=== PATIENT | female | born 1960 | race American Indian/Alaskan Native ===

== ENCOUNTER 2021-05-25 13:36 | Emergency (ER) | payer OTHER ==
[2021-05-25 14:02] VITALS: BP 167/95; PULSE 110
--- NOTE | 2021-05-25 14:30 | EDM.PDOC ---
ED HPI GENERAL MEDICAL PROBLEM - General Chief Complaint: ENT Problem Stated Complaint: LOST HEARING Time Seen by Provider: 05/25/21 14:30 Source of Information: Reports: Patient, RN, RN Notes Reviewed History Limitations: Reports: No Limitations - History of Present Illness INITIAL COMMENTS - FREE TEXT/NARRATIVE: Lakeisha is a 61 y/o female who presents to the ED via personal vehicle with complaints of bilateral ear pain and decreased hearing. The patient reports her symptoms began yesterday and have progressively worsened in that time. She notes she attempted to clean out her ears using an OTC water-jet machine as well as an OCT ear scraping tool. She has taken transient doses of ibuprofen with no alleviation in symptoms. The patient denies fever, shaking chills, vision changes, dizziness, cough, or sore throat. Bilateral Ear Pain Score (Numeric/FACES): 6 - Related Data Allergies Allergy/AdvReac Type Severity Reaction Status Date / Time No Known Allergies Allergy Verified 05/25/21 13:59 Home Meds: Home Meds . [No Known Home Meds] 07/09/15 [History] Past Medical History HEENT History: Reports: None Cardiovascular History: Reports: None Respiratory History: Reports: None Gastrointestinal History: Reports: None Genitourinary History: Reports: None [employer] History: Reports: Musculoskeletal History: Reports: None Neurological History: Reports: None Psychiatric History: Reports: None Endocrine/Metabolic History: Reports: None Hematologic History: Reports: None, Other (See Below) Other Hematologic History: did give plasma today 07/09/15 Immunologic History: Reports: None Oncologic (Cancer) History: Reports: None Dermatologic History: Reports: None - Infectious Disease History Infectious Disease History: Reports: Chicken Pox, Measles, Mumps - Past Surgical History Head Surgeries/Procedures: Reports: None Female Surgical History: Reports: Section Other Female Surgeries/Procedures: 5 c sections (26 years ago) Social & Family History - Family History Family Medical History: Unobtainable - Tobacco Use Tobacco Use Status *Q: Current Some Day Tobacco User Years of Tobacco use: 5 Packs/Tins Daily: 1 - Caffeine Use Caffeine Use: Reports: Coffee - Recreational Drug Use Recreational Drug Use: No ED ROS ENT - Review of Systems Review Of Systems: Comprehensive ROS is negative, except as noted in HPI. ED EXAM, ENT - Physical Exam Exam: See Below Exam Limited By: No Limitations General Appearance: Alert, Mild Distress (Bilateral ear pain) Eye Exam: Bilateral Eye: EOMI, Normal Inspection, PERRL (3mm) Ears: Normal External Exam, Canal Swelling (To right), TM Bulging (To right), TM Dullness (To right), TM Erythema (To right), TM Fluid (To right), Cerumen Impaction (To left ear). No: Canal Blood, Canal Discharge, Canal Foreign Body, Canal Material Nose: Normal Inspection, Normal Mucousa, No Blood Mouth/Throat: Normal Inspection, Normal Gums, Normal Lips, Normal Oropharynx. No: Normal Teeth (Poor dentition with multiple missing theeth) Head: Atraumatic, Normocephalic Neck: Normal Inspection, Supple, Non-Tender, Full Range of Motion. No: Lymphadenopathy (L), Lymphadenopathy (R) Respiratory/Chest: No Respiratory Distress, Lungs Clear, Normal Breath Sounds, No Accessory Muscle Use, Chest Non-Tender. No: Crackles, Rales, Rhonchi, Wheezing, Stridor Cardiovascular: Normal Peripheral Pulses, Regular Rate, Rhythm, No Edema, No Gallop, No JVD, No Murmur, No Rub, Tachycardia GI/Abdominal: Normal Bowel Sounds, Soft, Non-Tender, No Distention, No Abnormal Bruit, No Mass, Pelvis Stable (Female) Exam: Deferred Rectal (Female) Exam: Deferred Back: Normal Inspection, Full Range of Motion Extremities: Normal Inspection, Normal Range of Motion, Normal Capillary Refill Neurological: Alert, Oriented, CN II-XII Intact, Normal Cognition, Normal Gait, No Motor/Sensory Deficits Psychiatric: Normal Affect, Normal Mood Skin: Warm, Dry, Intact, Normal Color, No Rash. No: Cyanosis, Jaundice, Mottled, Pallor Course - Vital Signs Last Recorded V/S: Last Vital Signs Temp 98.7 F 05/25/21 14:00 Pulse 110 H 05/25/21 14:00 Resp 20 05/25/21 14:00 BP 167/95 H 05/25/21 14:00 Pulse Ox 98 05/25/21 14:00 - Re-Assessments/Exams Free Text/Narrative Re-Assessment/Exam: 05/25/21 Findings of examination reviewed with patient. Will treat right AOM with Augmentin. Supportive cares for ear pain and cerumen impaction discussed. Patient instructed to follow up with primary care provider following course of abx for ear recheck regarding todays visit. Red flag signs and symptoms which would warrant immediate reevaluation reviewed. Patient verbalized understanding and agreement with the plan of care. Departure - Departure Time of Disposition: 14:49 Disposition: Home, Self-Care 01 Condition: Fair Clinical Impression: Impacted cerumen of left ear Otitis media Qualifiers: Otitis media type: suppurative Chronicity: acute Laterality: right Recurrence: non-recurrent Spontaneous tympanic membrane rupture: without spontaneous rupture Qualified Code(s): H66.001 - Acute suppurative otitis media without spontaneous rupture of ear drum, right ear - Discharge Information *PRESCRIPTION DRUG MONITORING PROGRAM REVIEWED*: Not Applicable *COPY OF PRESCRIPTION DRUG MONITORING REPORT IN PATIENT EUGENIO: Not Applicable Instructions: Earwax Buildup, Adult, Otitis Media, Adult Forms: ED Department Discharge Additional Instructions: Rx: Augmentin 875/125mg (#20) 1.) Start your antibiotics right away and continue until all pills are gone, even as symptoms improve. 2.) You may take ibuprofen (Advil/Motrin) 400-800mg every six hours, as pain persists. You may also take acetaminophen (Tylenol) 650-1000mg every six hours, as pain persists. You may stagger these medications so you are taking a dose of either every three hours. 3.) You may apply cold compresses to the area as pain and swelling persist, 20 minutes every hour. 4.) Obtain ear wax softening drops and apply to the left ear, per manufacturers instructions. 5.) Refrain from inserting foreign objects into your ear canal as this may cause damage to the sensitive structures of the ear. Sepsis Event Note (ED) - Evaluation Sepsis Screening Result: No Definite Risk - Focused Exam Vital Signs: Vital Signs Temp Pulse Resp BP Pulse Ox 05/25/21 14:00 98.7 F 110 H 20 167/95 H 98
== END 2021-05-25 14:57 | disposition home or self-care (01) ==
LOC: DL.ED 13:36
DX: H66.001 Acute suppurative otitis media without spontaneous rupture of ear drum, right ear (principal); H61.21 Impacted cerumen, right ear; Z72.0 Tobacco use
CPT/HCPCS: 99282